=== PATIENT | female | born 1945 | race African-American/Black ===

== ENCOUNTER 2016-08-07 09:47 | Emergency (ER) | payer MEDICARE, MEDICAID ==
[~2016-08-07] VITALS: Ht 157.5 cm; Wt 118.0 kg
[~2016-08-07 09:47] MED LIST: ALLO300T2; AMLO5TAB4; ASPI-1160; CALC-600; CARV12.545; CLON0.2T; COLC0.6T66; COR25; FOLI0.8T; FURO80TA87; GABA-531; POTA20PA3; SIMV20TA2; SITA100T6; VALS320T2
[2016-08-07 10:40] LABS: BASOPHILS % 1.1 % (0.0-2.0); EOSINOPHILS % 1.7 % (0.0-5.0); HEMATOCRIT. 36.5 % (36.0-48.0); HEMOGLOBIN. 11.8 g/dL (12.0-16.0); LYMPHOCYTES % 41.6 % (20.0-50.0); MEAN CORPUSCULAR HEMOGLOBIN 29.6 pg (28.0-32.0); MEAN CORPUSCULAR VOLUME 91.4 fL (81.0-99.0); MEAN PLATELET VOLUME 8.5 fl (7.4-10.4); MONOCYTES % 10.4 % (2.0-8.0); NEUTROPHILS % 45.2 % (40.0-76.0); PLATELET 204 x1000/uL (130-400); RED BLOOD CELL COUNT 3.99 mill/uL (4.2-5.4); RED CELL DISTRIBUTION WIDTH 17.4 % (11.6-14.6)
[2016-08-07 10:48] LABS: PROTHROMBIN TIME 10.1 sec
[2016-08-07 10:56] LABS: CARBON DIOXIDE 31 mEq/L (21-32); CHLORIDE 106 mEq/L (98-107); TROPONIN I < 0.02 ng/mL (0.00-0.04)
[2016-08-07 12:10] VITALS: BP 135/78
== END 2016-08-07 12:39 | disposition home or self-care (01) ==
LOC: ER 10:21
DX: R06.02 Shortness of breath (principal); I11.0 Hypertensive heart disease with heart failure; I50.9 Heart failure, unspecified; E11.9 Type 2 diabetes mellitus without complications; Z79.82 Long term (current) use of aspirin
CPT/HCPCS: 36415; 71010; 80048; 82962; 83880; 84484; 85025; 85610; 93005; 99285